=== PATIENT | male | born 1945 | race Caucasian/White ===

== ENCOUNTER 2022-08-01 05:57 | Day surgery (SDC) | payer OTHER, BC ==
[2022-07-27 15:38] VITALS: BMI 26.9
[2022-08-01] MEDS ORDERED: MIDAZOLAM HCL 2 MG/2 ML SINGLE DOSE VIAL ONE (07:13)
[2022-08-01] MEDS ORDERED: DEXAMETHASONE SOD PHOSPHATE 4 MG/1 ML VIAL ONE (07:16)
[2022-08-01] MEDS ORDERED: PROPOFOL 20 ML ONE (07:17)
[2022-08-01] MEDS ORDERED: ROPIVACAINE HCL 0.5% 30ML VIAL ONE (07:19)
[2022-08-01] MEDS ORDERED: ceFAZolin SODIUM 1 GM VIAL IVPB ONE (08:50)
[2022-08-01] MEDS ORDERED: ONDANSETRON 4 MG/2 ML VIAL ONE (08:52)
[2022-08-01] MEDS ORDERED: oxyCODONE HCL 5 MG TABLET PO PRN ×2 (10:36)
[2022-08-01] MEDS ORDERED: ONDANSETRON 4 MG/2 ML VIAL IVPUSH PRN (10:36)
[2022-08-01] MEDS ORDERED: LACTATED RINGERS SOLUTION 1,000 ML IV SCH (10:45)
[2022-08-01 13:32] VITALS: RESP 20
[2022-08-01 13:38] VITALS: BP 133/71; PULSE 77; TEMP 98
== END 2022-08-01 13:20 | disposition home or self-care (01) ==
LOC: JASU-SURG 05:57
PROVIDERS: ATTEND Orthopaedic Surgery
PROC: 0PB94ZZ Excision of Right Clavicle, Percutaneous Endoscopic Approach (ICD-10-PCS; 2022-08-01)
PROC: 0RNJ4ZZ Release Right Shoulder Joint, Percutaneous Endoscopic Approach (ICD-10-PCS; 2022-08-01)
PROC: 0LQ14ZZ Repair Right Shoulder Tendon, Percutaneous Endoscopic Approach (ICD-10-PCS; 2022-08-01)
PROC: 0RNJ4ZZ Release Right Shoulder Joint, Percutaneous Endoscopic Approach (ICD-10-PCS; 2022-08-01)
PROC: 0RBJ4ZZ Excision of Right Shoulder Joint, Percutaneous Endoscopic Approach (ICD-10-PCS; principal; 2022-08-01 08:00)
DX: M75.111 Incomplete rotator cuff tear or rupture of right shoulder, not specified as traumatic (principal); M75.41 Impingement syndrome of right shoulder; M66.811 Spontaneous rupture of other tendons, right shoulder; M75.01 Adhesive capsulitis of right shoulder
CPT/HCPCS: 82962; 94760